=== PATIENT | female | born 1965 | race Caucasian/White ===

== ENCOUNTER 2017-03-29 18:32 | Emergency (ER) | payer OTHER ==
[~2017-03-29] VITALS: Ht 172.7 cm; Wt 69.9 kg
--- NOTE | 2017-03-29 18:40 | ED.ADGEN ---
Past History Past Medical History: Other Adult General Chief Complaint Chief Complaint ".. I guess I passed out for a little.. this happen twice on Day.. I got EKG, CXR, CT Chest by my primary is Dr. Chavo Pope... he said if this happen again to go to ED and get a EKG..." " We were out running the dogs with sheep.. and she had been getting short of breath... but all sudden I turned she was on the ground.. I thought she had tripped. ...but she was out of it for a few seconds.. but woke right up..." (Friend) [facility] HPI Patient is a 51 year old female who presents with above hx and complaints of dyspnea and syncope. Pt. states previous workups of EKG, heart echo, CT of chest , and EKG did not show a specific pathology. Patient does have a previous right bundle branch block. Patient does have a family history of sarcoid and sarcoid heart with her brother. Patient denies any trauma. Patient denies any travel. Patient denies any specific ill contacts. Patient denies any change in meds. Patient does have some history of asthma. No previous history of DVT or pulmonary embolism. Patient has syncope unawareness and does not recall any dysrhythmia before the event. Patient did collapse into a pile of horse and sheep dip, and took the time to go home and shower and change clothes before presenting to ED. Syncope occurred at aprox. 1800. Pt. reports no sequela of dizziness, chest pain or dyspnea at this time. Review of Systems Review of Systems Constitutional: Denies fever or chills [] Eyes: Denies change in visual acuity, redness, or eye pain [] HENT: Denies nasal congestion or sore throat [] Respiratory: Complains of shortness of breath and asthma Cardiovascular: No additional information not addressed in HPI [] GI: Denies abdominal pain, nausea, vomiting, bloody stools or diarrhea [] : Denies dysuria or hematuria [] Musculoskeletal: Denies back pain or joint pain [] Integument: Denies rash or skin lesions [] Neurologic: Denies headache, focal weakness or sensory changes []complaints of syncope Endocrine: Denies polyuria or polydipsia [] Family History Family History Brother has sarcoid- and pace maker for his Rt. BBB. Current Medications Current Medications Current Medications Medications (Trade) Dose Ordered Sig/Oliver Start Time Stop Time Status Last Admin Dose Admin Albuterol/ Ipratropium (Duoneb) 3 ml 1X ONCE 03/29/17 19:45 03/29/17 19:46 DC Aspirin (Children'S Aspirin) 324 mg 1X ONCE 03/29/17 18:45 03/29/17 18:49 DC 03/29/17 19:13 324 MG Cephalexin HCl (Keflex) 500 mg 1X ONCE 03/29/17 22:15 03/29/17 22:16 DC 03/29/17 22:10 500 MG Prednisone (Prednisone) 50 mg 1X ONCE 03/29/17 19:45 03/29/17 19:46 DC Sodium Chloride 1,000 ml @ 100 mls/hr Q10H 03/29/17 18:41 03/29/17 22:17 DC 03/29/17 19:13 100 MLS/HR See nursing for home medications Allergies Allergies Allergies Coded Allergies Type Severity Reaction Last Updated Verified celecoxib Allergy Severe sob 03/29/17 Yes Physical Exam Physical Exam Constitutional: well nourished, no acute distress, non-toxic appearance. [] HENT: Normocephalic, atraumatic, bilateral external ears normal, oropharynx moist, no oral exudates, nose normal. [] Eyes: PERRLA, EOMI, conjunctiva normal, no discharge. [] Neck: Normal range of motion, no tenderness, supple, no stridor. No carotid bruits Cardiovascular:Bradycardic Heart rate regular rhythm, no murmur [] Lungs & Thorax: Bilateral breath sounds equal with few scattered wheezes on auscultation [] Abdomen: Bowel sounds normal, soft, no tenderness, no masses, no pulsatile masses. [] Skin: Warm, dry, no erythema, no rash. [] Back: No tenderness, no CVA tenderness. [] Extremities: No tenderness, no cyanosis, no clubbing, ROM intact, no edema. [] Neurologic: Alert and oriented X 3, normal motor function, normal sensory function, no focal deficits noted. DTR +2, patella and brachial. No drift. Emergency Services Dispatcher equal. Distal Vib. intact, mild decrease in feet. AC>BC, no lateralization with 128. Psychologic: Affect normal, judgement normal, mood normal. [] Current Patient Data Vital Signs Vital Signs Date Time Temp Pulse Resp B/P (MAP) Pulse Ox O2 Delivery O2 Flow Rate FiO2 03/29/17 22:15 79 20 102/76 (85) 98 Room Air 03/29/17 19:25 98.6 Lab Results Laboratory Tests Test 03/29/17 18:45 03/29/17 19:05 03/29/17 20:20 03/29/17 21:53 White Blood Count 5.8 x10^3/uL (4.0-11.0) Red Blood Count 4.28 x10^6/uL (3.50-5.40) Hemoglobin 13.2 g/dL (12.0-15.5) Hematocrit 38.6 % (36.0-47.0) Mean Corpuscular Volume 90 fL (79-100) Mean Corpuscular Hemoglobin 31 pg (25-35) Mean Corpuscular Hemoglobin Concent 34 g/dL (31-37) Red Cell Distribution Width 13.5 % (11.5-14.5) Platelet Count 257 x10^3/uL (140-400) Neutrophils (%) (Auto) 52 % (31-73) Lymphocytes (%) (Auto) 30 % (24-48) Monocytes (%) (Auto) 12 % (0-9) H Eosinophils (%) (Auto) 5 % (0-3) H Basophils (%) (Auto) 1 % (0-3) Neutrophils # (Auto) 3.0 x10^3uL (1.8-7.7) Lymphocytes # (Auto) 1.8 x10^3/uL (1.0-4.8) Monocytes # (Auto) 0.7 x10^3/uL (0.0-1.1) Eosinophils # (Auto) 0.3 x10^3/uL (0.0-0.7) Basophils # (Auto) 0.1 x10^3/uL (0.0-0.2) Prothrombin Time 9.6 SEC (9.4-11.4) Prothrombin Time INR 0.9 (0.9-1.1) PTT < 21 SEC (23-33) L D-Dimer (Leslie) 0.26 mg/L (0.00-0.50) Sodium Level 139 mmol/L (136-145) Potassium Level 4.3 mmol/L (3.5-5.1) Chloride Level 104 mmol/L (98-107) Carbon Dioxide Level 26 mmol/L (21-32) Anion Gap 9 (6-14) Blood Urea Nitrogen 20 mg/dL (7-20) Creatinine 0.9 mg/dL (0.6-1.0) Estimated GFR (Cockcroft-Gault) 65.5 BUN/Creatinine Ratio 22 (6-20) H Glucose Level 98 mg/dL (70-99) Calcium Level 9.0 mg/dL (8.5-10.1) Magnesium Level 2.1 mg/dL (1.8-2.4) Total Bilirubin 0.3 mg/dL (0.2-1.0) Aspartate Amino Transferase (AST) 23 U/L (15-37) Alanine Aminotransferase (ALT) 29 U/L (14-59) Alkaline Phosphatase 57 U/L (46-116) Creatine Kinase 112 U/L (26-192) Creatine Kinase MB (Mass) 1.1 ng/mL (0.0-3.6) Creatine Kinase MB Relative Index 1.0 % (0-4) Troponin I Quantitative < 0.017 ng/mL (0-0.055) HZ-Eve-U-Type Natriuretic Peptide 190 pg/mL (0-124) H Total Protein 6.5 g/dL (6.4-8.2) Albumin 3.8 g/dL (3.4-5.0) Albumin/Globulin Ratio 1.4 (1.0-1.7) Urine Opiates Screen Neg (NEG) Urine Methadone Screen Neg (NEG) Urine Barbiturates Neg (NEG) Urine Phencyclidine Screen Neg (NEG) Urine Amphetamine/Methamphetamine Neg (NEG) Urine Benzodiazepines Screen Neg (NEG) Urine Cocaine Screen Neg (NEG) Urine Cannabinoids Screen Neg (NEG) Urine Ethyl Alcohol Neg (NEG) Urine Collection Type Unknown Urine Color Yellow Urine Clarity Hazy Urine pH 6.0 Urine Specific [place] <=1.005 Urine Protein Neg (NEG-TRACE) Urine Glucose (UA) Neg mg/dL (NEG) Urine Ketones (Stick) Neg mg/dL (NEG) Urine Blood Neg (NEG) Urine Nitrite Neg (NEG) Urine Bilirubin Neg (NEG) Urine Urobilinogen Dipstick 0.2 mg/dL (0.2 mg/dL) Urine Leukocyte Esterase Mod (NEG) Urine RBC 1-2 /HPF (0-2) Urine WBC 11-20 /HPF (0-4) Urine Squamous Epithelial Cells Few /LPF Urine Transitional Epithelial Cells Few /LPF Urine Bacteria 0 /HPF (0-FEW) POC Troponin I 0.01 ng/ml (<0.08) EKG EKG My interpretation of EKG shows sinus 65, RBBB, Nonspecific Anteroseptal change, No STEMI with Contralateral changes.[] Radiology/Procedures Radiology/Procedures My interpretation of CXR shows[] no acute cardiopul. changes. Small cardiac silhouette. Slight hyperexpansion Course & Med Decision Making Course & Med Decision Making Pertinent Labs and Imaging studies reviewed. (See chart for details). Patient has elected to be discharged in spite of risks. Patient must follow-up with her primary care. Recommended Holter monitor or cardiology consult. Patient take a daily aspirin. Patient must follow-up all labs and EKGs with primary care. Recommend a cardiology consult as soon as possible. Take Keflex 500 mg 3 times a day for 5 days. Must follow-up cultures of urine. Push vitamin C drinks. Repeat urine check on follow-up. Return at any time to complete her evaluation and serial enzymes. Patient advised suspect her problem was not pulmonary but most likely cardiogenic a bases history and the findings of her right bundle branch block and family history. [] Final Impression Final Impression 1. Syncope 2. Dyspnea[] 3. Rt BBB 4. Urinary tract infection Problems: Dragon Disclaimer Dragon Disclaimer This electronic medical record was generated, in whole or in part, using a voice recognition dictation system. KRUPA SERRANO MD Mar 29, 2017 18:40
[2017-03-29] MEDS ORDERED: IV NORMAL SALINE 1,000ML 1,000 ML IV SCH (18:41)
[2017-03-29] MEDS ORDERED: ASPIRIN 81 MG TAB.CHEW PO ONE (18:45)
[2017-03-29 19:03] LABS: BASO # 0.1 x10^3/uL (0.0-0.2); BASO % 1 % (0-3); EOS # 0.3 x10^3/uL (0.0-0.7); EOS % 5 % (0-3); HEMATOCRIT 38.6 % (36.0-47.0); HEMOGLOBIN 13.2 g/dL (12.0-15.5); LYMPH # 1.8 x10^3/uL (1.0-4.8); LYMPH % 30 % (24-48); MEAN CORPUSCULAR HEMOGLOBIN 31 pg (25-35); MEAN CORPUSCULAR HGB CONC 34 g/dL (31-37); MEAN CORPUSCULAR VOLUME 90 fL (79-100); MONO # 0.7 x10^3/uL (0.0-1.1); MONO % 12 % (0-9); NEUT % 52 % (31-73); PLATELET COUNT 257 x10^3/uL (140-400); RED BLOOD COUNT 4.28 x10^6/uL (3.50-5.40); RED CELL DISTRIBUTION WIDTH 13.5 % (11.5-14.5); WHITE BLOOD COUNT 5.8 x10^3/uL (4.0-11.0)
[2017-03-29 19:22] LABS: ALBUMIN 3.8 g/dL (3.4-5.0); ALBUMIN/GLOBULIN RATIO 1.4 (1.0-1.7); CREATININE 0.9 mg/dL (0.6-1.0); GFR 65.5; MAGNESIUM 2.1 mg/dL (1.8-2.4); POTASSIUM 4.3 mmol/L (3.5-5.1); TOTAL BILIRUBIN 0.3 mg/dL (0.2-1.0); TOTAL PROTEIN 6.5 g/dL (6.4-8.2)
[2017-03-29 19:28] LABS: AMPHETAMINE/METHAMPHETAMINE NEG (NEG); BARBITURATES NEG (NEG); BENZODIAZEPINES NEG (NEG); CANNABINOIDS NEG (NEG); COCAINE NEG (NEG); METHADONE NEG (NEG); OPIATES NEG (NEG); PHENCYCLIDINE NEG (NEG)
[2017-03-29] MEDS ORDERED: IPRATRPIUM/ALBUTEROL 0.5/2.5MG 3 ML NEBU. NEB ONE (19:45)
[2017-03-29] MEDS ORDERED: predniSONE 10 MG TABLET PO ONE (19:45)
--- NOTE | 2017-03-29 20:38 | RAD ---
CT scan of the head without contrast 03/29/2017 Clinical History: Syncopal episodes since earlier today. Technique: Unenhanced, contiguous, 5 mm axial sections were obtained through the head. One or more of the following individualized dose reduction techniques were utilized for this study: 1. Automated exposure control. 2. Adjustment of the mA and/or kV according to patient size. 3. Use of iterative reconstruction technique. Findings: The ventricles and sulci are within normal limits in size and configuration. No focal area of abnormal attenuation is seen involving the brain parenchyma. No extra-axial fluid collection is seen. No skull fracture is seen. Impression: Negative study. Electronically signed by: Hugo Townsend MD (03/29/2017 8:34 PM) [facility]
[2017-03-29 20:48] LABS: CLARITY,URINE HAZY; COLOR,URINE YELLOW; GLUCOSE,URINE NEG (NEG)
[2017-03-29 20:49] LABS: BACTERIA,URINE 0 /HPF (0-FEW); BILIRUBIN,URINE NEG (NEG); NITRITE,URINE NEG (NEG); UROBILINOGEN,URINE 0.2 mg/dL (0.2 mg/dL)
[2017-03-29 20:50] LABS: SQUAMOUS EPITHELIAL CELL,UR FEW /LPF
[2017-03-29] MEDS ORDERED: ASPI-630 PO (22:06)
[2017-03-29] MEDS ORDERED: CEPH-264 PO (22:06)
[2017-03-29 22:15] VITALS: BP 102/76
[2017-03-29] MEDS ORDERED: CEPHALEXIN 250 MG CAPSULE PO ONE (22:15)
--- NOTE | 2017-03-30 07:48 | EKG ---
[address] [address] Test Date: 2017-03-29 Test Time: 18:43:19 Pat Name: [facility] Department: Room: Gender: F Aerologist: RAEANN : 1965 Requested By: KRUPA SERRANO Order Number: [id number] Reading MD: Measurements Intervals Hilbert Rate: 65 P: 37 SD: 264 QRS: 86 QRSD: 130 T: 38 QT: 414 QTc: 436 Interpretive Statements SINUS RHYTHM PROLONGED SD INTERVAL RIGHT BUNDLE BRANCH BLOCK RVH WITH REPOLARIZATION ABNORMALITY QRS(T) CONTOUR ABNORMALITY CONSIDER ANTEROSEPTAL MYOCARDIAL DAMAGE ABNORMAL ECG RI6.01 No previous ECG available for comparison
--- NOTE | 2017-03-30 07:53 | EKG ---
[address] [address] Test Date: 2017-03-29 Test Time: 18:43:19 Pat Name: [facility] Department: Room: Gender: F Cat Scan Technologist: RAEANN : 1965 Requested By: KRUPA SERRANO Order Number: [id number] Reading MD: Measurements Intervals [place] Rate: 65 P: 37 MI: 264 QRS: 86 QRSD: 130 T: 38 QT: 414 QTc: 436 Interpretive Statements SINUS RHYTHM PROLONGED MI INTERVAL RIGHT BUNDLE BRANCH BLOCK RVH WITH REPOLARIZATION ABNORMALITY QRS(T) CONTOUR ABNORMALITY CONSIDER ANTEROSEPTAL MYOCARDIAL DAMAGE ABNORMAL ECG RI6.01 No previous ECG available for comparison
--- NOTE | 2017-03-30 08:21 | RAD ---
PA and lateral chest radiographs 03/29/2017. Clinical History: Syncopal episode earlier in the day. PA and lateral digital radiographs of the chest were obtained. No previous studies are available for comparison. The cardiac and mediastinal silhouettes are within normal limits in size and configuration. No pulmonary infiltrate is seen. No pleural effusion or pneumothorax is noted. The osseous structures are grossly intact. Impression: No radiographic evidence of active cardiopulmonary disease.
== END 2017-03-29 22:15 | disposition home or self-care (01) ==
LOC: ER 18:32
DX: R55 Syncope and collapse (principal); R06.00 Dyspnea, unspecified; N39.0 Urinary tract infection, site not specified; J45.909 Unspecified asthma, uncomplicated; I45.10 Unspecified right bundle-branch block; Z88.1 Allergy status to other antibiotic agents
CPT/HCPCS: 36415; 70450; 71020; 80053; 80307; 81001; 82553; 83735; 83880; 84443; 84484; 85025; 85379; 85610; 85730; 87086; 90471; 93005; 96360; 96374; 96375; 96376; 99285-25; G0479; J7030